=== PATIENT | female | born 1990 | race Two or more races ===

== ENCOUNTER 2017-08-04 09:11 | Emergency (ER) | payer OTHER ==
[2017-08-04 09:54] LABS: BILIRUBIN,URINE NEGATIVE (NEGATIVE); GLUCOSE, URINE (UA) NEGATIVE (NEGATIVE); KETONES,URINE (UA) NEGATIVE (NEGATIVE); LEUKOCYTE ESTERASE, URINE NEGATIVE (NEGATIVE); NITRITE,URINE NEGATIVE (NEGATIVE); OCCULT BLOOD,URINE NEGATIVE (NEGATIVE); PROTEIN,URINE NEGATIVE (NEGATIVE); UROBILINOGEN,URINE 0.2 (NORMAL) E.U./dL (NORMAL)
[2017-08-04 10:02] LABS: CLARITY,URINE CLEAR (CLEAR); HCG UR QUAL NEGATIVE
[2017-08-04] MEDS ORDERED: ONDANSETRON 4 MG/2 ML VIAL IVP STA (10:28)
[2017-08-04] MEDS ORDERED: SODIUM CHLORIDE 0.9% 1,000 ML IV ONE (10:28)
[2017-08-04 10:47] LABS: BASOPHILS % (AUTO) 0.6 %; EOSINOPHILS % (AUTO) 0.6 %; HGB - HEMOGLOBIN 14.4 g/dL (12.0-16.0); LYMPHOCYTES # (AUTO) 1.7 10^3/uL (1.5-3.5); LYMPHOCYTES % (AUTO) 24.2 %; MEAN CORPUSCULAR HEMOGLOBIN 25.8 pg (27.0-31.0); MEAN CORPUSCULAR HGB CONC 32.9 g/dL (32.0-36.0); MEAN CORPUSCULAR VOLUME 78.2 fL (81.0-99.0); MEAN PLATELET VOLUME 8.9 fL (7.9-10.8); MONOCYTES # (AUTO) 0.4 10^3/uL (0.0-1.0); MONOCYTES % (AUTO) 5.3 %; NEUTROPHILS # (AUTO) 4.9 10^3/uL (1.5-6.6); NEUTROPHILS % (AUTO) 69.3 %; PLT - PLATELET COUNT 197 10^3/uL (130-450); RED BLOOD COUNT 5.58 10^6/uL (4.20-5.40); RED CELL DISTRIBUTION WIDTH 14.3 % (12.0-15.0); WHITE BLOOD COUNT 7.1 x10^3/uL (4.8-10.8)
--- NOTE | 2017-08-04 10:52 | ED Physician Documentation ---
History of Present Illness - Stated complaint Stated Complaint: VOMITING - Chief complaint Chief Complaint: Abd Pain - Additonal information Additional information: hx from pt 27 female denies preg home HCG neg to ER with lower abd pain and vomiting 30 min after eating for several weeks blood in emsesis X 1 a week ago none since no diarrhea no fever no prior abd surgery no urinary sx no vag bleed + vag dc Review of Systems Constitutional: denies: Fever, Chills Cardiac: denies: Chest pain / pressure Respiratory: denies: Dyspnea GI: reports: Abdominal Pain, Nausea, Vomiting. denies: Diarrhea : reports: Discharge. denies: Now EGA Endocrine: denies: Polyphagia PD PAST MEDICAL HISTORY - Present Medications Home Medications: Ambulatory Orders Medication Instructions Recorded Confirmed Doxycycline Hyclate 100 mg PO BID #20 capsule 08/04/17 Ondansetron Odt [Zofran] 4 mg TL Q6H PRN #10 tablet 08/04/17 - Allergies Allergies/Adverse Reactions: Allergies Allergy/AdvReac Type Severity Reaction Status Date / Time No Known Drug Allergies Allergy Verified 08/04/17 09:22 PD ED PE NORMAL - Vitals Vital signs reviewed: Yes - Neck Neck: Supple, no meningeal sign - Cardiac Cardiac: RRR - Respiratory Respiratory: No respiratory distress, Clear bilaterally - Abdomen Abdomen: Soft, Non tender (only hurts after eating) - Female Female : 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), Other (small white yelow dc, + mild CMT, no bleeding, no FB) - Derm Derm: Normal color - Neuro Neuro: Alert and oriented X 3 Results - Vitals Vitals: Vital Signs - 24 hr 08/04/17 08/04/17 09:18 12:40 Temperature 36.7 C Heart Rate 82 68 Respiratory 16 12 Rate Blood Pressure 134/78 H 110/72 O2 Saturation 100 100 Oxygen O2 Source Room air - Labs Labs: Laboratory Tests 08/04/17 08/04/17 08/04/17 09:47 10:40 10:40 WBC 7.1 RBC 5.58 H Hgb 14.4 Hct 43.6 MCV 78.2 L MCH 25.8 L MCHC 32.9 RDW 14.3 Plt Count 197 MPV 8.9 Neut # 4.9 Lymph # 1.7 Dent # 0.4 Eos # 0.0 Baso # 0.0 Absolute Nucleated RBC 0.00 Nucleated RBC % 0.0 Sodium 137 Potassium 4.0 Chloride 106 Carbon Dioxide 24 Anion Gap 7.0 BUN 14 Creatinine 0.8 Estimated GFR (MDRD) 87 L Glucose 93 Calcium 8.8 Total Bilirubin 0.5 AST 22 ALT 19 Alkaline Phosphatase 94 Total Protein 8.0 Albumin 4.2 Globulin 3.8 Albumin/Globulin Ratio 1.1 Lipase 15 L Urine Color YELLOW Urine Clarity CLEAR Urine pH 6.0 Ur Specific [place] >=1.030 H Urine Protein NEGATIVE Urine Glucose (UA) NEGATIVE Urine Ketones NEGATIVE Urine Occult Blood NEGATIVE Urine Nitrite NEGATIVE Urine Bilirubin NEGATIVE Urine Urobilinogen 0.2 (NORMAL) Ur Leukocyte Esterase NEGATIVE Ur Microscopic Review NOT INDICATED Urine Culture Comments NOT INDICATED Urine HCG, Qual NEGATIVE - Rads (name of study) AAS Radiology: See rad report (normal) pelvic sono Radiology: See rad report (unremakable) Departure - Departure Disposition: 01 Home, Self Care Clinical Impression: PID (acute pelvic inflammatory disease) Condition: Good Instructions: ED PID Prescriptions: Doxycycline Hyclate 100 mg PO BID #20 capsule Ondansetron Odt [Zofran] 4 mg TL Q6H PRN #10 tablet PRN Reason: Nausea / Vomiting Comments: Your labs and xray and sonogram are all fine. It looks like you have a pelvic infection This can be caused by numerous different kinds of bacteria - including but certainly not only, STDs. We have sent culture to test for the cause of this infection and have started you on antibiotics to cover a variety of possible etiologies. I also prescribed medication for the vomiting. Motrin and tylenol as needed for the pain Please follow up with your PMD Thursday to get the culture result and for a recheck If you are not better with this treatment, you may need further testing such as a CT scan or scopes Return to the ER if worse Forms: Activity restrictions
[2017-08-04 10:58] LABS: ALBUMIN 4.2 g/dL (3.2-5.5); ALBUMIN/GLOBULIN RATIO 1.1 (1.0-2.2); BILIRUBIN,TOTAL 0.5 mg/dL (0.2-1.0); CALCIUM 8.8 mg/dL (8.5-10.3); CREATININE 0.8 mg/dL (0.4-1.0)
--- NOTE | 2017-08-04 12:21 | XRAY Report ---
EXAM: ABDOMINAL SERIES AND PA CHEST EXAM DATE: 08/04/2017 11:56 AM. CLINICAL HISTORY: Abd pain and vomiting. COMPARISON: None. TECHNIQUE: 2 views abdomen and 1 view chest. FINDINGS: CHEST: Lungs/Pleura: No focal opacities. No effusion or pneumothorax. Mediastinum: Within exam limitations, cardiomediastinal contour is normal. ABDOMEN: Bowel Gas Pattern: Within normal limits. No dilated loops or abnormal fluid levels. Free Air: None. Other: None. IMPRESSION: Normal abdominal series (including 1-view chest). [facility] Referring Provider Line: [phone] SITE ID: [id number]
--- NOTE | 2017-08-04 12:21 | XRAY Preliminary Report ---
Exam: XR ABDOMEN ACUTE IMPRESSION: Normal abdominal series (including 1-view chest). [facility] SITE ID: [id number]
[2017-08-04 12:41] VITALS: BP 110/72
--- NOTE | 2017-08-04 12:45 | Ultrasound Report ---
PELVIC ULTRASOUND: 08/04/2017 HISTORY: Pain. TECHNIQUE: Real-time scanning by the filter pulp washer with transabdominal approach only. Saved static images reviewed. FINDINGS: UTERUS: 7.1 x 2.8 x 4 cm, normal echotexture, anteverted configuration. ENDOMETRIAL ECHO THICKNESS: 2.8 mm. RIGHT OVARY: 4.9 x 1.7 x 2.0 cm, volume 8.7 mL. Normal echotexture and blood flow. LEFT OVARY: 5.1 x 2.7 x 2.7 cm, volume 19.4 mL. Normal echotexture and blood flow. FREE FLUID: None. IMPRESSION: UNREMARKABLE PELVIC ULTRASOUND. TD: 08/04/2017 12:45
[2017-08-04] MEDS ORDERED: cefTRIAXone 250 MG VIAL IM STA (14:13)
[2017-08-04] MEDS ORDERED: LIDOCAINE 1% 2 ML VIAL SUBQ ONE (14:13)
== END 2017-08-04 14:59 | disposition home or self-care (01) ==
LOC: ED 09:11
DX: N73.9 Female pelvic inflammatory disease, unspecified (principal)
CPT/HCPCS: 36415; 74022; 76856; 80053; 81001; 81003; 81025; 83690; 85025; 87086; 87210; 87491; 87591; 93975; 96361; 96372; 96374; 99284

== ENCOUNTER 2020-01-23 10:12 | Emergency (ER) | payer OTHER ==
--- NOTE | 2020-01-23 10:24 | ED Physician Documentation ---
PD HPI HEADACHE - Stated complaint Stated Complaint: VICENTE/BACK PX - Chief complaint Chief Complaint: Neuro - History obtained from History obtained from: Patient - History of Present Illness Timing - onset: How many months ago (2) Timing - duration: Months (2) Timing - details: Gradual onset, Waxing and waning Worst headache ever?: No: Worst headache ever? (but is worse than usual) Location: Left Quality: Throbbing, Aching Associated symptoms: Nausea, Vision changes (wiggly lines and some blurriness.). No: Fever, Stiff neck Improved by: No: Dark room, Meds Worsened by: Light Contributing factors: No: Recent illness, Trauma Similar symptoms before: Has not had sx before Recently seen: Clinic ([place]. Has seen [facility] for headaches and just treated with Ibuprofen, per pt. No testing.) Review of Systems Constitutional: denies: Fever Eyes: reports: Photophobia. denies: Loss of vision, Decreased vision (some wiggly lines and fuzzy vision at times.) Ears: denies: Ear pain Nose: denies: Rhinorrhea / runny nose, Congestion Throat: denies: Sore throat Cardiac: denies: Chest pain / pressure Respiratory: denies: Dyspnea, Cough GI: reports: Nausea. denies: Abdominal Pain, Vomiting, Diarrhea Neurologic: reports: Headache. denies: Focal weakness, Numbness, Difficulty speaking, Near syncope, Altered mental status, Head injury Psychiatric: reports: Depressed, Anxiety. denies: Suicidal, Insomnia PD PAST MEDICAL HISTORY - Past Medical History Cardiovascular: None Respiratory: None Neuro: Headaches (just recently) Psych: Depression, Anxiety - Present Medications Home Medications: Ambulatory Orders Medication Instructions Recorded Confirmed Doxycycline Hyclate 100 mg PO BID #20 capsule 08/04/17 Ondansetron Odt [Zofran] 4 mg TL Q6H PRN #10 tablet 08/04/17 Amitriptyline HCl 25 mg PO QPM #20 tablet 01/23/20 Hydrocodone/Acetaminophen 1 each PO Q6H PRN #12 tablet 01/23/20 [Hydrocodone-Acetamin 5-325 mg] Indomethacin, Submicronized 20 mg PO BID #20 capsule 01/23/20 [Indomethacin] Ondansetron Odt [Zofran] 4 mg TL Q6H PRN #10 tablet 01/23/20 - Allergies Allergies/Adverse Reactions: Allergies Allergy/AdvReac Type Severity Reaction Status Date / Time No Known Drug Allergies Allergy Verified 01/24/20 16:12 PD ED PE NORMAL - Vitals Vital signs reviewed: Yes - General General: Alert and oriented X 3, No acute distress, Well developed/nourished, Other (tearful) - HEENT HEENT: Atraumatic, PERRL (light sensitive. ), Moist mucous membranes, Pharynx benign - Neck Neck: Supple, no meningeal sign, No adenopathy - Cardiac Cardiac: RRR, No murmur - Respiratory Respiratory: Clear bilaterally - Abdomen Abdomen: Soft, Non tender - Derm Derm: Normal color, Warm and dry - Extremities Extremities: Normal ROM s pain - Neuro Neuro: Alert and oriented X 3, hands hanger 2-12 intact, No motor deficit, No sensory deficit, Normal speech, Other Eye Opening: Spontaneous Motor: Obeys Commands Verbal: Oriented GCS Score: 15 - Psych Psych: No: Normal affect (depressed and tearful) Results - Vitals Vitals: Oxygen O2 Source Room air - Labs Labs: Laboratory Tests 01/23/20 01/23/20 01/23/20 11:10 11:10 11:10 WBC 8.7 RBC 5.28 Hgb 14.1 Hct 43.4 MCV 82.2 MCH 26.7 L MCHC 32.5 RDW 14.8 Plt Count 219 MPV 11.0 H Neut # (Auto) 6.2 Lymph # (Auto) 1.9 [place] # (Auto) 0.5 Eos # (Auto) 0.0 Baso # (Auto) 0.0 Absolute Nucleated RBC 0.00 Nucleated RBC % 0.0 Sodium 138 Potassium 4.2 Chloride 102 Carbon Dioxide 24 Anion Gap 12.0 BUN 14 Creatinine 0.8 Estimated GFR (MDRD) 86 L Glucose 104 H Calcium 9.2 Total Bilirubin 0.7 AST 19 ALT 18 Alkaline Phosphatase 65 C-Reactive Protein < 1.0 Total Protein 7.7 Albumin 4.0 Globulin 3.7 Albumin/Globulin Ratio 1.1 Lipase 32 TSH 0.86 - Rads (name of study) head CT Radiology: Prelim report reviewed (no acute process), See rad report PD MEDICAL DECISION MAKING - ED course Complexity details: re-evaluated patient (improved with meds here, targeted toward Migraine type VICENTE.), considered differential (Headaches sound like migraines chronic. ), d/w patient, d/w [employer] ad[employer] consultant (Social WOrk talked with pt and arranged safety plan and pt to see Counselor in AM. ) Departure - Departure Disposition: 01 Home, Self Care Clinical Impression: Left-sided headache Depression Qualifiers: Depression Type: unspecified Qualified Code(s): F32.9 - Major depressive disorder, single episode, unspecified Condition: Stable Record reviewed to determine appropriate education?: Yes Instructions: ED Depression, ED Cephalgia Unspecified Follow-Up: [facility] [Provider Group] Prescriptions: Amitriptyline HCl 25 mg PO QPM #20 tablet Hydrocodone/Acetaminophen [Hydrocodone-Acetamin 5-325 mg] 1 each PO Q6H PRN #12 tablet PRN Reason: Pain Indomethacin, Submicronized [Indomethacin] 20 mg PO BID #20 capsule Ondansetron Odt [Zofran] 4 mg TL Q6H PRN #10 tablet PRN Reason: Nausea / Vomiting Comments: See your counselor tomorrow as scheduled. Follow-up with other counselors per social work referrals if provided. For your headaches, your blood tests and CT scan appear normal. Your headaches do sound most likely chronic daily headache or chronic migraine. We can try a different anti-inflammatory and also medication targeted toward chronic migraine. Use these as prescribed over the next 1 to 2 weeks. To that add Tylenol if needed for pain. Hydrocodone for worse pain if needed. Ondansetron if needed for nausea. Follow-up with your primary care over the next several days to see how much improvement you are having in to decide on any further treatment changes or perhaps referral to a headache specialist Discharge Date/Time: 01/23/20 13:59
[2020-01-23] MEDS ORDERED: ONDANSETRON ODT 4 MG TABLET TL STA (10:58)
[2020-01-23] MEDS ORDERED: KETOROLAC 30 MG/ML VIAL IM STA (10:58)
[2020-01-23] MEDS ORDERED: CHERRY SYRUP 10 ML UDC PO ONE (10:58)
[2020-01-23] MEDS ORDERED: DEXAMETHASONE 10 MG/ML VIAL PO STA (10:58)
[2020-01-23 11:17] LABS: BASOPHILS % (AUTO) 0.3 %; EOSINOPHILS % (AUTO) 0.2 %; HGB - HEMOGLOBIN 14.1 g/dL (12.0-16.0); LYMPHOCYTES # (AUTO) 1.9 10^3/uL (1.5-3.5); LYMPHOCYTES % (AUTO) 21.6 %; MEAN CORPUSCULAR HEMOGLOBIN 26.7 pg (27.0-31.0); MEAN CORPUSCULAR HGB CONC 32.5 g/dL (32.0-36.0); MEAN CORPUSCULAR VOLUME 82.2 fL (81.0-99.0); MONOCYTES # (AUTO) 0.5 10^3/uL (0.0-1.0); MONOCYTES % (AUTO) 5.5 %; NEUTROPHILS # (AUTO) 6.2 10^3/uL (1.5-6.6); NEUTROPHILS % (AUTO) 72.1 %; PLT - PLATELET COUNT 219 10^3/uL (130-450); RED BLOOD COUNT 5.28 10^6/uL (4.20-5.40); RED CELL DISTRIBUTION WIDTH 14.8 % (12.0-15.0); WHITE BLOOD COUNT 8.7 x10^3/uL (4.8-10.8)
[2020-01-23 11:42] LABS: ALBUMIN/GLOBULIN RATIO 1.1 (1.0-2.2); ALKALINE PHOSPHATASE 65 IU/L (42-121); ALT ALANINE AMINOTRANSFERASE 18 IU/L (10-60); AST ASPARTATE AMINOTRANSFERASE 19 IU/L (10-42); BILIRUBIN,TOTAL 0.7 mg/dL (0.2-1.0); BUN - BLOOD UREA NITROGEN 14 mg/dL (6-20); CALCIUM 9.2 mg/dL (8.5-10.3); CARBON DIOXIDE - CO2 24 mmol/L (21-32); CHLORIDE 102 mmol/L (101-111); CREATININE 0.8 mg/dL (0.4-1.0); GLUCOSE 104 mg/dL (70-100); LIPASE 32 U/L (22-51); SODIUM 138 mmol/L (135-145); TOTAL PROTEIN 7.7 g/dL (6.7-8.2)
[2020-01-23 11:45] LABS: CRP - C-REACTIVE PROTEIN < 1.0 mg/dL (0-1.0)
[2020-01-23 13:08] VITALS: BP 108/89
--- NOTE | 2020-01-23 13:12 | CT Report ---
PROCEDURE: HEAD WO INDICATIONS: headache left side x 2 months TECHNIQUE: Noncontrast 4.5 mm thick angled axial sections acquired from the foramen magnum to the vertex. For r adiation dose reduction, the following was used: automated exposure control, adjustment of mA and/or kV according to patient size. COMPARISON: None. FINDINGS: Image quality: Excellent. CSF spaces: Basal cisterns are patent. No extra-axial fluid collections. Ventricles are normal in size and shape. Brain: No midline shift. No intracranial masses or hemorrhage. Thibodeaux-white matter interface is norm al. Skull and face: Calvarium and visualized facial bones are intact, without suspicious lesions. Sinuses: Visualized sinuses and mastoids are clear. IMPRESSION: A cause of headache cannot be seen on these images. Note: Case discussed by telephone with Dr. Rodriguez at 12:11 PM [place] time on 01/23/2020. Reviewed by: Ramana Ledezma MD on 01/23/2020 12:11 PM ABNER Approved by: Ramana Ledezma MD on 01/23/2020 12:11 PM [facility] Station ID: [id number]
== END 2020-01-23 13:59 | disposition home or self-care (01) ==
LOC: ED 10:12
DX: G43.909 Migraine, unspecified, not intractable, without status migrainosus (principal); F32.9 Major depressive disorder, single episode, unspecified; F41.9 Anxiety disorder, unspecified; R11.0 Nausea; M54.9 Dorsalgia, unspecified
CPT/HCPCS: 36415; 70450; 83690; 86140; 96372; 99284; A9270; Q0162; 80053; 84443; 85025

== ENCOUNTER 2020-01-24 16:09 | Emergency (ER) | payer OTHER ==
[2020-01-24 16:33] LABS: BASOPHILS % (AUTO) 0.3 %; EOSINOPHILS % (AUTO) 0.1 %; LYMPHOCYTES # (AUTO) 2.7 10^3/uL (1.5-3.5); LYMPHOCYTES % (AUTO) 18.4 %; MEAN CORPUSCULAR HEMOGLOBIN 26.5 pg (27.0-31.0); MEAN CORPUSCULAR HGB CONC 32.6 g/dL (32.0-36.0); MEAN CORPUSCULAR VOLUME 81.3 fL (81.0-99.0); MEAN PLATELET VOLUME 10.8 fL (7.9-10.8); MONOCYTES # (AUTO) 0.8 10^3/uL (0.0-1.0); MONOCYTES % (AUTO) 5.3 %; NEUTROPHILS # (AUTO) 11.2 10^3/uL (1.5-6.6); NEUTROPHILS % (AUTO) 75.4 %; PLT - PLATELET COUNT 227 10^3/uL (130-450); RED BLOOD COUNT 5.28 10^6/uL (4.20-5.40); WHITE BLOOD COUNT 14.8 x10^3/uL (4.8-10.8)
[2020-01-24 16:37] LABS: MUDS CUTOFF CONCENTRATIONS CUTOFF CONC BELOW:
[2020-01-24 16:45] LABS: BILIRUBIN,URINE NEGATIVE (NEGATIVE); GLUCOSE, URINE (UA) NEGATIVE (NEGATIVE); KETONES,URINE (UA) NEGATIVE (NEGATIVE); LEUKOCYTE ESTERASE, URINE MODERATE (NEGATIVE); NITRITE,URINE NEGATIVE (NEGATIVE); OCCULT BLOOD,URINE TRACE-INTA (NEGATIVE); PROTEIN,URINE NEGATIVE (NEGATIVE); UROBILINOGEN,URINE 0.2 (NORMAL) E.U./dL (NORMAL)
[2020-01-24 16:46] LABS: CLARITY,URINE HAZY (CLEAR); HCG UR QUAL NEGATIVE
[2020-01-24 16:49] LABS: ACETAMINOPHEN < 10 ug/mL (10-30); ALBUMIN 4.1 g/dL (3.2-5.5); ALBUMIN/GLOBULIN RATIO 1.1 (1.0-2.2); ALKALINE PHOSPHATASE 60 IU/L (42-121); ALT ALANINE AMINOTRANSFERASE 19 IU/L (10-60); AST ASPARTATE AMINOTRANSFERASE 20 IU/L (10-42); BILIRUBIN,TOTAL 0.6 mg/dL (0.2-1.0); BUN - BLOOD UREA NITROGEN 16 mg/dL (6-20); CALCIUM 9.2 mg/dL (8.5-10.3); CARBON DIOXIDE - CO2 27 mmol/L (21-32); CHLORIDE 103 mmol/L (101-111); GLUCOSE 117 mg/dL (70-100); LIPASE 28 U/L (22-51); SALICYLATE < 6.0 mg/dL; SODIUM 140 mmol/L (135-145); TOTAL PROTEIN 7.9 g/dL (6.7-8.2)
[2020-01-24 16:57] LABS: AMPHETAMINE SCREEN,URINE NEGATIVE (NEGATIVE); BACTERIA,URINE Few /HPF (None Seen); BENZODIAZEPINES SCREEN, URINE NEGATIVE (NEGATIVE); COCAINE SCREEN URINE NEGATIVE (NEGATIVE); METHADONE SCREEN, URINE NEGATIVE (NEGATIVE); METHAMPHETAMINES SCREEN, URINE NEGATIVE (NEGATIVE); OPIATE SCREEN, URINE NEGATIVE (NEGATIVE); OXYCODONE SCREEN, URINE NEGATIVE (NEGATIVE); PROPOXYPHENE SCREEN, URINE NEGATIVE (NEGATIVE); RBC,URINE 0-5 /HPF (0-5); SQUAMOUS EPITHELIAL CELL,UR MANY Squamous (<= Few); TRICYCLIC ANTIDEPRESSANT,URINE NEGATIVE (NEGATIVE)
--- NOTE | 2020-01-24 17:51 | ED Physician Documentation ---
History of Present Illness - Stated complaint Stated Complaint: MHE - Chief complaint Chief Complaint: MHE - History obtained from History obtained from: Patient - Additonal information Additional information: Pt presents for medical clearance prior to transfer to [facility] for mental health inpatient services. She was seen yesterday for a throbbing left sided headache which she states she still has, but she hasn't picked up the medications ordered from yesterday either. She did receive a dose of dexamethasone yesterday and had a negative head CT. States she is afebrile, no cough or URI sx, no vision changes, + light sensitivity, no eye tearing or drainage, no cp, dyspnea, abd pain, n/v/d, no urinary sx. Review of Systems Constitutional: reports: Reviewed and negative Eyes: reports: Reviewed and negative Ears: reports: Reviewed and negative Nose: reports: Reviewed and negative Throat: reports: Reviewed and negative Cardiac: reports: Reviewed and negative Respiratory: reports: Reviewed and negative GI: reports: Reviewed and negative : reports: Reviewed and negative Skin: reports: Reviewed and negative Musculoskeletal: reports: Reviewed and negative Neurologic: reports: Headache. denies: Generalized weakness, Focal weakness, Numbness, Difficulty speaking, Near syncope, Syncope, Seizure, Confused, Altered mental status Psychiatric: reports: Depressed PD PAST MEDICAL HISTORY - Past Medical History Cardiovascular: None Respiratory: None Neuro: None Endocrine/Autoimmune: None GI: None CORRECTIONAL CLASSIFICATION COUNSELOR: None : None HEENT: None Psych: None Musculoskeletal: None Derm: None - Past Surgical History Past Surgical History: Yes - Present Medications Home Medications: Ambulatory Orders Medication Instructions Recorded Confirmed Doxycycline Hyclate 100 mg PO BID #20 capsule 08/04/17 Ondansetron Odt [Zofran] 4 mg TL Q6H PRN #10 tablet 08/04/17 Amitriptyline HCl 25 mg PO QPM #20 tablet 01/23/20 Hydrocodone/Acetaminophen 1 each PO Q6H PRN #12 tablet 01/23/20 [Hydrocodone-Acetamin 5-325 mg] Indomethacin, Submicronized 20 mg PO BID #20 capsule 01/23/20 [Indomethacin] Ondansetron Odt [Zofran] 4 mg TL Q6H PRN #10 tablet 01/23/20 - Allergies Allergies/Adverse Reactions: Allergies Allergy/AdvReac Type Severity Reaction Status Date / Time No Known Drug Allergies Allergy Verified 01/24/20 16:12 - Social History Does the pt smoke?: No Smoking Status: Never smoker Does the pt drink ETOH?: Yes Does the pt have substance abuse?: No - Immunizations Immunizations are current?: Yes PD ED PE NORMAL - Vitals Vital signs reviewed: Yes - General General: Alert and oriented X 3, No acute distress, Well developed/nourished - HEENT HEENT: Atraumatic, PERRL, EOMI, Moist mucous membranes, Pharynx benign - Neck Neck: Supple, no meningeal sign, No adenopathy, No JVD - Cardiac Cardiac: RRR, No murmur, No gallop, No rub, Strong equal pulses - Respiratory Respiratory: No respiratory distress, Clear bilaterally - Abdomen Abdomen: Normal bowel sounds, Soft, Non tender, Non distended - Derm Derm: Normal color, Warm and dry, No rash - Extremities Extremities: No deformity, No tenderness to palpate, Normal ROM s pain, No edema, No calf tenderness / cord - Neuro Neuro: Alert and oriented X 3 Eye Opening: Spontaneous Motor: Obeys Commands Verbal: Oriented GCS Score: 15 - Psych Psych: Normal mood, Normal affect Results - Vitals Vitals: Vital Signs - 24 hr 01/24/20 16:12 Temperature 36.5 C Heart Rate 97 Respiratory 16 Rate Blood Pressure 137/76 H O2 Saturation 99 Oxygen O2 Source Room air - Labs Labs: Laboratory Tests 01/24/20 01/24/20 01/24/20 16:25 16:25 16:25 WBC 14.8 H RBC 5.28 Hgb 14.0 Hct 42.9 MCV 81.3 MCH 26.5 L MCHC 32.6 RDW 15.0 Plt Count 227 MPV 10.8 Neut # (Auto) 11.2 H Lymph # (Auto) 2.7 [place] # (Auto) 0.8 Eos # (Auto) 0.0 Baso # (Auto) 0.0 Absolute Nucleated RBC 0.00 Nucleated RBC % 0.0 Sodium 140 Potassium 3.9 Chloride 103 Carbon Dioxide 27 Anion Gap 10.0 BUN 16 Creatinine 1.0 Estimated GFR (MDRD) 67 L Glucose 117 H Calcium 9.2 Total Bilirubin 0.6 AST 20 ALT 19 Alkaline Phosphatase 60 Total Protein 7.9 Albumin 4.1 Globulin 3.8 Albumin/Globulin Ratio 1.1 Lipase 28 TSH 0.64 Urine Color Urine Clarity Urine pH Ur Specific [place] Urine Protein Urine Glucose (UA) Urine Ketones Urine Occult Blood Urine Nitrite Urine Bilirubin Urine Urobilinogen Ur Leukocyte Esterase Urine RBC Urine WBC Ur Squamous Epith Cells Urine Bacteria Ur Microscopic Review Urine Culture Comments Urine HCG, Qual Salicylates < 6.0 Urine Opiates Screen Ur Oxycodone Screen Urine Methadone Screen Ur Propoxyphene Screen Acetaminophen < 10 L Ur Barbiturates Screen Ur Tricyclics Screen Ur Phencyclidine Scrn Ur Amphetamine Screen U Methamphetamines Scrn U Benzodiazepines Scrn Urine Cocaine Screen U Cannabinoids Screen Ethyl Alcohol < 5.0 01/24/20 16:35 WBC RBC Hgb Hct MCV MCH MCHC RDW Plt Count MPV Neut # (Auto) Lymph # (Auto) [place] # (Auto) Eos # (Auto) Baso # (Auto) Absolute Nucleated RBC Nucleated RBC % Sodium Potassium Chloride Carbon Dioxide Anion Gap BUN Creatinine Estimated GFR (MDRD) Glucose Calcium Total Bilirubin AST ALT Alkaline Phosphatase Total Protein Albumin Globulin Albumin/Globulin Ratio Lipase TSH Urine Color YELLOW Urine Clarity HAZY Urine pH 6.0 Ur Specific [place] 1.025 Urine Protein NEGATIVE Urine Glucose (UA) NEGATIVE Urine Ketones NEGATIVE Urine Occult Blood TRACE-INTA Urine Nitrite NEGATIVE Urine Bilirubin NEGATIVE Urine Urobilinogen 0.2 (NORMAL) Ur Leukocyte Esterase MODERATE H Urine RBC 0-5 Urine WBC 4-5 Ur Squamous Epith Cells MANY Squamous H Urine Bacteria Few Ur Microscopic Review INDICATED Urine Culture Comments NOT INDICATED Urine HCG, Qual NEGATIVE Salicylates Urine Opiates Screen NEGATIVE Ur Oxycodone Screen NEGATIVE Urine Methadone Screen NEGATIVE Ur Propoxyphene Screen NEGATIVE Acetaminophen Ur Barbiturates Screen NEGATIVE Ur Tricyclics Screen NEGATIVE Ur Phencyclidine Scrn NEGATIVE Ur Amphetamine Screen NEGATIVE U Methamphetamines Scrn NEGATIVE U Benzodiazepines Scrn NEGATIVE Urine Cocaine Screen NEGATIVE U Cannabinoids Screen POSITIVE H Ethyl Alcohol PD MEDICAL DECISION MAKING - ED course Complexity details: reviewed old records, reviewed results, re-evaluated patient, d/w patient ED course: Pt presents for medical clearance. She has ongoing headaches that are migranous in description. She had a negative head CT yesterday and no focal neuro findi ngs. Her WBC is up from yesterday likely 2/2 to receiving dexamethasone. She is afebrile w/o any other atypical exam findings. She is therefore medically cleared for transfer to [facility] for mental health services as per plan relayed to me by the RN.
[2020-01-24 23:06] VITALS: BP 123/74
== END 2020-01-24 23:49 ==
LOC: ED 16:09
DX: F32.9 Major depressive disorder, single episode, unspecified (principal); R45.851 Suicidal ideations; G43.909 Migraine, unspecified, not intractable, without status migrainosus
CPT/HCPCS: 36415; 80053; 80306; 80307; 80320; 80329; 81001; 81003; 81025; 83690; 84443; 85025; 87086; 99283; 99285